=== PATIENT | female | born 1995 | race Caucasian/White ===

== ENCOUNTER 2020-06-30 16:56 | Outpatient (REF) | payer MEDICAID, SELFPAY | END 2020-06-30 16:57 | disposition home or self-care (01) | LOC: HO.LAB 16:56 | PROVIDERS: Visit Provider Internal Medicine | DX: Z20.828 Contact with and (suspected) exposure to other viral communicable diseases (principal) | CPT/HCPCS: 36415; C9803; U0003 ==

== ENCOUNTER → 2020-07-03 09:32 | Outpatient (BNVA) | payer MEDICAID, SELFPAY | PROVIDERS: Visit Provider Advanced Practice Midwife | DX: Z76.89 Persons encountering health services in other specified circumstances (principal) ==

== ENCOUNTER → 2020-07-09 14:30 | Outpatient (BNVA) | payer MEDICAID, SELFPAY | PROVIDERS: Visit Provider Advanced Practice Midwife | DX: Z76.89 Persons encountering health services in other specified circumstances (principal) ==

== ENCOUNTER → 2020-07-14 12:58 | Outpatient (BNVA) | payer MEDICAID, SELFPAY | PROVIDERS: Visit Provider Advanced Practice Midwife | DX: Z30.09 Encounter for other general counseling and advice on contraception (principal) | CPT/HCPCS: 11981; 11982; 99212 ==

== ENCOUNTER 2020-07-23 15:42 | Outpatient (REF) | payer MEDICAID, SELFPAY | END 2020-07-23 15:43 | disposition home or self-care (01) | LOC: HO.LAB 15:42 | PROVIDERS: Visit Provider Internal Medicine | DX: Z20.822 Contact with and (suspected) exposure to COVID-19 (principal) | CPT/HCPCS: 36415; C9803; U0003 ==

== ENCOUNTER 2020-09-18 13:08 | Outpatient (REF) | payer MEDICAID, SELFPAY | END 2020-09-18 13:09 | disposition home or self-care (01) | LOC: HO.LAB 13:08 | PROVIDERS: Visit Provider Internal Medicine | DX: Z20.822 Contact with and (suspected) exposure to COVID-19 (principal) | CPT/HCPCS: 36415; C9803; U0003; U0005 ==

== ENCOUNTER 2020-10-07 13:06 | Outpatient (REF) | payer MEDICAID, SELFPAY ==
[2020-10-07 14:39] LABS: COVID-19 Test Negative (Negative)
== END 2020-10-07 13:07 | disposition home or self-care (01) ==
LOC: HO.LAB 13:06
PROVIDERS: Visit Provider Internal Medicine
DX: Z20.822 Contact with and (suspected) exposure to COVID-19 (principal)
CPT/HCPCS: 36415; 87635; C9803

== ENCOUNTER → 2020-10-13 12:59 | Outpatient (BNVA) | payer MEDICAID, SELFPAY | PROVIDERS: Visit Provider Advanced Practice Midwife | DX: Z30.41 Encounter for surveillance of contraceptive pills (principal); Z12.4 Encounter for screening for malignant neoplasm of cervix | CPT/HCPCS: 99212 ==

== ENCOUNTER 2020-11-26 12:25 | Outpatient (REF) | payer MEDICAID, SELFPAY ==
[2020-11-26 12:42] LABS: COVID-19 Test Negative (Negative)
== END 2020-11-26 12:26 | disposition home or self-care (01) ==
LOC: HO.LAB 12:25
PROVIDERS: Visit Provider Internal Medicine
DX: Z20.822 Contact with and (suspected) exposure to COVID-19 (principal)
CPT/HCPCS: 36415; 87635; C9803

== ENCOUNTER 2021-08-05 14:35 | Outpatient (REF) | payer MEDICAID, SELFPAY ==
[2021-08-06 01:25] LABS: CT PCR NOT DETECTED (Not Detect.); NG PCR NOT DETECTED (Not Detect.)
[2021-08-06 11:10] LABS: BV Int Neg Control Negative (Negative); BV Int Pos Control Positive (Positive)
== END 2021-08-05 14:36 | disposition home or self-care (01) ==
LOC: HO.LAB 14:35
PROVIDERS: Visit Provider Advanced Practice Midwife
DX: Z12.4 Encounter for screening for malignant neoplasm of cervix (principal); Z78.9 Other specified health status; Z20.2 Contact with and (suspected) exposure to infections with a predominantly sexual mode of transmission
CPT/HCPCS: 87480; 87491; 87510; 87591; 87660; 88142

== ENCOUNTER 2021-08-09 11:12 | Outpatient (REF) | payer MEDICAID, SELFPAY ==
[2021-08-09 12:43] LABS: Syphilis Screen Nonreactive (Nonreactive)
[2021-08-09 12:52] LABS: HBsAGNum1 0.24 S/CO (0.00-0.99); Hepatitis B Surface Antigen Negative (Negative); ~HepC Num1 0.05 S/CO (0.00-0.79); ~Hepatitis C Antibody Nonreactive (Nonreactive)
[2021-08-09 13:02] LABS: HIV AB/AG Nonreactive (Nonreactive); HIV Num 1 0.08 S/CO (0.00-0.99)
== END 2021-08-09 11:13 | disposition home or self-care (01) ==
LOC: HO.LAB 11:12
PROVIDERS: PCP Family Medicine; Visit Provider Advanced Practice Midwife
DX: Z12.4 Encounter for screening for malignant neoplasm of cervix (principal); Z11.4 Encounter for screening for human immunodeficiency virus [HIV]; Z20.2 Contact with and (suspected) exposure to infections with a predominantly sexual mode of transmission; Z78.9 Other specified health status
CPT/HCPCS: 36415; 86780; 86803; 87340; 87389

== ENCOUNTER → 2021-09-01 09:16 | Outpatient (BNVA) | payer SELFPAY | PROVIDERS: PCP Family Medicine; Visit Provider Physician Assistant ==

== ENCOUNTER → 2021-09-10 08:52 | Outpatient (BNVA) | payer SELFPAY | PROVIDERS: PCP Family Medicine; Visit Provider Physician Assistant | DX: Z02.79 Encounter for issue of other medical certificate (principal) ==

== ENCOUNTER 2023-07-20 13:26 | Outpatient (AMB) | payer MEDICAID, SELFPAY ==
--- NOTE | 2023-07-20 13:26 | A.OFFVIS_ITS ---
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 Pretty much once a month she does not really keep track of it because her had a vasectomy and she has not worried about getting . She would like testing for STDs just to be sure. 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 Has not seen her primary care provider in a while. She is healthy does not smoke. She is physically a ctive with her job [employer] Medical History delivery delivered Social History Alcohol intake: never Patient : No Gender identity: Female Female Reproductive History Menstrual Age of Menarche: 9 Duration of menses: 3-5 days Date of last menstrual period: 07/05/23 control method: other (vasectomy) Total pregnancies: 2 Full term: 2 Date of last pap smear: 08/06/21 (negative) History of abnormal pap smear: No Physical Exam Vital Signs: Last Vital Signs BP 110/68 07/20/23 13:46 BMI result Body Mass Index 19.8 Const General: healthy appearing, comfortable, no acute distress, well developed and alert Nutritional Appearance: average body habitus Orientation/consciousness: patient oriented x3 Limitations: no limitations HEENT Head: Yes normocephalic Neck Neck: Yes normal visual inspection Chest Chest palpation & inspection: normal inspection of the chest Breast/axilla inspection: normal inspection of the breasts and normal inspection of the axillae Breast/axilla palpation: normal palpation of the breasts and normal palpation of the axillae Resp Effort & Inspection: normal respiratory effort GI Inspection: Yes normal to inspection, No Abdominal wall edema and No distended Palpation (GI): Soft to palpation and nontender Other: Vagina is clear and pink cervix nulliparous slightly anterior difficult to visualize because of its anterior positioning. Uterus small retroverted body mobile nontender cervix probably somewhat anterior secondary to scar tissue from 2 C sections. Adnexa nontender very good tone with Kegel General: Yes bladder normal to palpation External Female Exam: normal external appearance and normal appearance of the urethra Speculum Exam - Vagina: normal appearance of the vagina, normal palpation and normal vaginal discharge Speculum Exam - Cervix: normal appearance of the cervix, normal palpation and nontender Bimanual exam- vagina & uterus: normal bimanual exam, normal palpation, uterine size normal, bladder normal to palpation, consistency normal, normal palpation, uterine mobility normal, uterine shape normal, No Cervical tenderness present, non-tender and no cervical motion tenderness Bimanual Exam- Adnexa, other: normal adnexae, no masses, normal and No adnexal tenderness Neuro General: patient oriented x3 Assessment & Plan Assessment & Plan (1) Relies on partner's vasectomy for primary method of contraception: Code(s): Z78.9 - Other specified health status (2) Potential exposure to STD: Code(s): Z20.2 - Contact with and (suspected) exposure to infections with a predominantly sexual mode of transmission (3) Cervical cancer screening: Comment: pap 10/09/15= neg, pap done 08/05/21= neg Code(s): Z12.4 - Encounter for screening for malignant neoplasm of cervix (4) Well woman exam with routine gynecological exam: Code(s): Z01.419 - Encounter for gynecological examination (general) (routine) without abnormal findings Plan -----Discussed in this visit the following: healthy balanced diet, regular and consistent exercise, getting recommended health screens, doing the best she can for her particular health concerns, kegel exercises, pap smear screening and followup recommendations, mammography screening and SBE, normal changes in cycles in her life stage--- . Encouraged adding a variety of green vegetables and other vegetables into her family diet. Encouraged her seeing her primary care provider but overall she is doing well with self-care and health the practices. RTC 1 year Pap done because the previous Pap would not have had HPV code testing. If this Pap is negative her next Pap could be due in 5 years. Orders: Orders Hepatitis B Surface Antigen Today Z12.4 - Encounter for screening for malignant neoplasm of cervix, Z20.2 - Contact with and (suspected) exposure to infections with a predominantly sexual mode of transmission, Z78.9 - Other specified health status Hepatitis C Antibody Today Z12.4 - Encounter for screening for malignant neoplasm of cervix, Z20.2 - Contact with and (suspected) exposure to infections with a predominantly sexual mode of transmission, Z78.9 - Other specified health status HIV Ab/Ag Today Z12.4 - Encounter for screening for malignant neoplasm of cervix, Z20.2 - Contact with and (suspected) exposure to infections with a predominantly sexual mode of transmission, Z78.9 - Other specified health status Syphilis Screen Today Z12.4 - Encounter for screening for malignant neoplasm of cervix, Z20.2 - Contact with and (suspected) exposure to infections with a predominantly sexual mode of transmission, Z78.9 - Other specified health status Coding Level of Care Code Est Pt Prev Care 18-39y(51795) Diagnoses Relies on partner's vasectomy for primary method of contraception Z78.9 Potential exposure to STD Z20.2 Cervical cancer screening Z12.4 Well woman exam with routine gynecological exam Z01.419
[2023-07-20 13:46] VITALS: BP 110/68; BMI 19.8
== END 2023-07-20 14:34 | disposition home or self-care (01) ==
LOC: HO.HWSM 13:26
PROVIDERS: PCP Family Medicine; Visit Provider Advanced Practice Midwife
DX: Z78.9 Other specified health status (principal); Z20.2 Contact with and (suspected) exposure to infections with a predominantly sexual mode of transmission; Z12.4 Encounter for screening for malignant neoplasm of cervix; Z01.419 Encounter for gynecological examination (general) (routine) without abnormal findings
CPT/HCPCS: 99395

== ENCOUNTER 2023-07-20 13:26 | Outpatient (REF) | payer MEDICAID, SELFPAY ==
[2023-07-21 04:50] LABS: CT PCR NOT DETECTED (Not Detect.); NG PCR NOT DETECTED (Not Detect.)
[2023-07-21 07:14] LABS: Syphilis Screen Nonreactive (Nonreactive)
[2023-07-21 07:29] LABS: HBsAGNum1 0.36 S/CO (0.00-0.99); HIV AB/AG Nonreactive (Nonreactive); HIV Num 1 0.07 S/CO (0.00-0.99); Hepatitis B Surface Antigen Negative (Negative); ~HepC Num1 0.05 S/CO (0.00-0.79); ~Hepatitis C Antibody Nonreactive (Nonreactive)
[2023-07-21 09:28] LABS: BV Int Neg Control Negative (Negative); BV Int Pos Control Positive (Positive)
[2023-07-28 06:33] LABS: HPV mRNA E6/E7 rflx Not Detected (Not Detected)
== END 2023-07-20 13:27 | disposition home or self-care (01) ==
LOC: HO.HHCL 13:26
PROVIDERS: PCP Family Medicine; Visit Provider Advanced Practice Midwife
DX: Z01.419 Encounter for gynecological examination (general) (routine) without abnormal findings (principal); Z78.9 Other specified health status; Z20.2 Contact with and (suspected) exposure to infections with a predominantly sexual mode of transmission
CPT/HCPCS: 0353U; 36415; 86780; 86803; 87340; 87389; 87480; 87510; 87624; 87660; 88142; 99395

== ENCOUNTER 2023-10-11 10:58 | Outpatient (REF) | payer MEDICAID, SELFPAY ==
[2023-10-19 03:59] LABS: HPV mRNA E6/E7 rflx Not Detected (Not Detected)
== END 2023-10-11 10:59 | disposition home or self-care (01) ==
LOC: HO.LNP 10:58
PROVIDERS: PCP Family Medicine; Visit Provider Advanced Practice Midwife
DX: Z12.4 Encounter for screening for malignant neoplasm of cervix (principal); Z11.51 Encounter for screening for human papillomavirus (HPV); Z78.9 Other specified health status; R87.615 Unsatisfactory cytologic smear of cervix
CPT/HCPCS: 87624; 88142; 99212

== ENCOUNTER 2023-10-11 10:58 | Outpatient (AMB) | payer MEDICAID, SELFPAY ==
--- NOTE | 2023-10-11 11:01 | MHC.OFFVIS ---
Intake Vital Signs 10/11/23 11:02 Height 4 ft 11 in Weight 99 lb BMI 20.0 BP 106/64 Intake Visit Reasons: repeat pap Polysomnography Tech Required: No Information Interpreted: non-clinical & clinical Forming Department End Finder: Forming Department End Finder Present (Saray) Allergies No Known Allergies Allergy (Verified 10/11/23 11:02) Medication List - Last Reconciled 10/11/23 by Karlee Hawthorne CNM No Known Home Meds Is last menstrual period known: Yes Last menstrual period: 09/16/23 Post menopausal: No HPI repeat pap HPI Details Patient is here today to repeat her Pap smear her last Pap smear was done in June and it came back unsatisfactory. Her previous Pap was negative with negative HPV in 2021 and her Pap before that had been 2015 also negative. Her partner's had a vasectomy she is happy about this so she does not need to worry about control currently her last menstrual period she thinks was around the 15 of September but she noted in her calendar this month. [facility] Medical History (Updated 10/11/23 @ 11:45 by Karlee Hawthorne CNM) delivery delivered Social History Alcohol intake: never Gender identity: Female Female Reproductive History Menstrual Age of Menarche: 9 Date of last menstrual period: 09/16/23 control method: none Date of last pap smear: 07/25/22 (unsatisfactory) History of abnormal pap smear: No Physical Exam Vital Signs: Last Vital Signs BP 106/64 10/11/23 11:02 BMI result Body Mass Index 20.0 Other: Normal external exam vagina pink and moist consistent with luteal phase if cycle cervix nulliparous pink tightly closed at os Pap done no excessive mucus noted whatsoever. Patient declined STI testing as has no concerns. External Female Exam: normal external appearance and normal appearance of the urethra Speculum Exam - Vagina: normal appearance of the vagina and normal vaginal discharge Speculum Exam - Cervix: normal appearance of the cervix and Cervical os closed Results Reviewed Results Reviewed: Name: Angela Owen Age/Sex: 28/F Attending: Karlee Hawthorne CNM : 1995 Submitted by: Karlee Hawthorne CNM Copies to: Radha Ibarra DO MR #: [id number] Status: DEP REF Collected: 07/20/23 Location: [facility] Received: 07/25/23 Interpretation Unsatisfactory. Obscuring mucus. HPV mRNA E6/E7: NOT DETECTED This assay detects E6/E7 viral messenger RNA (mRNA) from 14 high-risk HPV types (16, 18, 31, 33, 35, 39, 45, 51, 52, 56, 58, 59, 66, 68) HPV testing performed by [facility], [place], [place]. See reference laboratory portion of the EMR for entire report. Clinical Information LMP: 07/05/23 Previous PAP test: 08/06/21, WNL Material Received ThinPrep-Cervical Copies To Estella Ibarranievelyne Gates DO [address] [place], [place] [id number] [address] Cullen [address] [place] [id number] Electronically Signed By: CHERI Balderas (ASCP) 08/04/23 2882 The Pap Test is a screening procedure with the inherent possibility of both false negative and false positive results. Results should be interpreted in the context of historic and current clinical findings. Reliability of the Pap Test is enhanced by performing the test on a regular repetitive basis. Patient: Angela Owen Age/Sex: 28/F MR#: [id number] Page 1 of 1 Assessment & Plan Assessment & Plan (1) Cervical cancer screening: Comment: pap 10/09/15= neg, pap done 08/05/21= neg; pap jun 2023 inconclusive- being repeated 10/11/23, if negative today repeat 5 years. Code(s): Z12.4 - Encounter for screening for malignant neoplasm of cervix (2) Relies on partner's vasectomy for primary method of contraception: Code(s): Z78.9 - Other specified health status Plan Repeat Pap was done expect results within 2-3 weeks and patient will be sent a letter. If this Pap is normal her next exam of the any year but her next Pap smear would be in 5 years.. Coding Level of Care Code Est Pt Level 3 (06399) Diagnoses Cervical cancer screening Z12.4 Relies on partner's vasectomy for primary method of contraception Z78.9
[2023-10-11 11:02] VITALS: BP 106/64
== END 2023-10-11 11:41 | disposition home or self-care (01) ==
PROVIDERS: PCP Family Medicine; Visit Provider Advanced Practice Midwife
DX: Z12.4 Encounter for screening for malignant neoplasm of cervix (principal); Z78.9 Other specified health status
CPT/HCPCS: 99213